=== PATIENT | female | born 1950 | race Caucasian/White ===

== ENCOUNTER 2022-02-18 09:17 | Emergency (ER) | payer OTHER, SELFPAY ==
[2022-02-18] VITALS (8 sets, daily range): BP systolic 124–175; BP diastolic 67–107; PULSE 63–83; RESP 13–26; TEMP 36.7; O2SAT 88–100; BMI 31.8
[2022-02-18] MEDS: HYDROcodone Bitartrate/Apap 5/325 Tablet PO (09:32)
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
--- NOTE | 2022-02-18 09:45 | RAD_ITS ---
STUDY: X-RAY - LEFT HUMERUS REASON FOR EXAM: Female, 71 years old. INJURY TECHNIQUE: 4 view(s) of the humerus. COMPARISON: None. FINDINGS: There is anterior dislocation of the left humerus. There is subtle cortical irregularity lateral aspect of the femoral head which may represent subtle Hill-Sachs injury. There are unusual small caliber appearing needles or pins overlying the patient''s left upper quadrant and/or elbow on at least 2 views. There are 2 views without this phenomenon. RAD/Humerus min 2 Views IMPRESSION: There is anterior dislocation of the left humerus. There is subtle cortical irregularity lateral aspect of the femoral head which may represent subtle Hill-Sachs injury. There are unusual small caliber appearing needles or pins overlying the patient''s left upper quadrant and/or elbow on at least 2 views. There are 2 views without this phenomenon. Recommend correlation with the patient''s clothing containing pins or sharps. Electronically Signed: Vianney Gates MD at 10:05 EDT ,
--- NOTE | 2022-02-18 09:45 | RAD_ITS ---
STUDY: X-RAY - LEFT SHOULDER REASON FOR EXAM: Female, 71 years old. Fall TECHNIQUE: 2 view(s) of the shoulder. COMPARISON: None. FINDINGS: There is anterior inferior dislocation of the left humerus. Normal acromioclavicular joint. Normal acromion. There is cortical irregularity of the lateral aspect of the humerus which may represent subtle Hill-Sachs injury. There is visualized soft tissue edema. Normal visualized pulmonary apex. There is visualized degenerative change of the thoracic spine. RAD/Shoulder min 2 Views IMPRESSION: Anterior inferior dislocation left humerus. There is a cortical irregularity of the lateral aspect of the humerus which may represent subtle Hill-Sachs injury. Electronically Signed: Vianney Gates MD at 10:03 EDT ,
[2022-02-18] MEDS: 0.9% Normal Saline 1,000 ML 999 ML IV (11:15)
--- NOTE | 2022-02-18 11:40 | RAD_ITS ---
STUDY: X-RAY - LEFT SHOULDER REASON FOR EXAM: Female, 71 years old. Post reduction TECHNIQUE: 2 view(s) of the shoulder. COMPARISON: Left shoulder x-ray February 18, 2022 FINDINGS: There is been reduction of the dislocation. There is cephalad migration of the left humeral head. This is age indeterminant. There is degenerative arthrosis of the acromioclavicular joint without inferior osseous spur formation. Normal acromion. There is slight cortical irregularity in the periphery of the left humeral head which may represent age-indeterminate Hill-Sachs injury. There is incidental visualization of a calcification 5 cm in the left upper quadrant which may be involving the spleen. Normal visualized pulmonary apex. RAD/Shoulder min 2 Views IMPRESSION: Reduction of the left shoulder dislocation. Cephalad migration can be associated with rotator cuff injury. Age-indeterminate Hill-Sachs injury suspected. Electronically Signed: Vianeny Gates MD at 11:54 EDT ,
[2022-02-18] MEDS: Propofol 200 MG/20 ML Vial IV BOLUS (12:35)
== END 2022-02-18 13:04 | disposition home or self-care (01) ==
PROVIDERS: Emergency Provider Student in an Organized Health Care Education/Training Program; PCP Family Medicine; Visit Provider Student in an Organized Health Care Education/Training Program
DX: S42.202A Unspecified fracture of upper end of left humerus, initial encounter for closed fracture (principal); S43.015A Anterior dislocation of left humerus, initial encounter; V17.4XXA Pedal cycle driver injured in collision with fixed or stationary object in traffic accident, initial encounter; Y93.55 Activity, bike riding; F41.9 Anxiety disorder, unspecified; Z79.899 Other long term (current) drug therapy
CPT/HCPCS: 23650; 73030; 73060; 96360; 96361; 99285; J7030; A4216

== ENCOUNTER → 2025-02-24 | Outpatient (CLI) | payer SELFPAY | END | disposition home or self-care (01) | LOC: LABSPEC 16:26 | PROVIDERS: PCP Family Medicine; Visit Provider Physician Assistant | DX: R39.9 Unspecified symptoms and signs involving the genitourinary system (principal) | CPT/HCPCS: 87086; 87088 ==